=== PATIENT | female | born 1940 | race Caucasian/White ===

== ENCOUNTER 2020-04-02 13:18 | Emergency (ER) | payer MEDICARE ==
[2020-04-02] MEDS ORDERED: NORCO 5-325 TA1 EACH PO (16:47)
== END 2020-04-02 17:10 | disposition home or self-care (01) ==
LOC: FER 13:18
DX: S82.842A Displaced bimalleolar fracture of left lower leg, initial encounter for closed fracture (principal); N18.9 Chronic kidney disease, unspecified; Z87.19 Personal history of other diseases of the digestive system; Z88.1 Allergy status to other antibiotic agents; Z88.8 Allergy status to other drugs, medicaments and biological substances; W19.XXXA Unspecified fall, initial encounter; Y92.009 Unspecified place in unspecified non-institutional (private) residence as the place of occurrence of the external cause
CPT/HCPCS: 73610